=== PATIENT | male | born 1960 | race Caucasian/White ===

== ENCOUNTER 2018-04-15 04:00 | Emergency (ER) | payer MEDICARE ==
[2018-04-15] MEDS ORDERED: DUONEB 0.5-3 MG/3 ml Neb IH ONE ×2 (04:02→04:03)
[2018-04-15] MEDS ORDERED: Lasix 40 MG/4 ML IV ONE (04:02)
[2018-04-15] MEDS ORDERED: ROCEPHIN 1 Gm-D5w 50 ml Bag** 1 G/50 ML IVPB IV STA (04:02)
[2018-04-15] MEDS ORDERED: NITRO-BID 2% UD PACKETS TOP ONE (04:02)
[2018-04-15] MEDS ORDERED: Zithromax 500 MG/ 250 ML NaCl Premix 500 MG/250 ML IVPB IV STA (04:02)
[2018-04-15] MEDS ORDERED: NITRO-BID 2% UD PACKETS ONE (04:11)
[2018-04-15] MEDS ORDERED: ROCEPHIN 1 Gm-D5w 50 ml Bag** 1 G/50 ML IVPB IV ONE (04:11)
[2018-04-15] MEDS ORDERED: Lasix 40 MG/4 ML ONE (04:11)
[2018-04-15] MEDS ORDERED: Zithromax 500 MG/ 250 ML NaCl Premix 500 MG/250 ML IVPB IV ONE (04:11)
[2018-04-15 04:31] LABS: Granulocyte Absolute (ANC) 15.98 (1.4-6.9); Hematocrit 41.7 % (42-50); Hemoglobin 13.2 gm/dl (12.5-18.0); Mean Cell Volume 85.3 fl (78-100); Mean Corpuscular Hgb Concent. 31.7 g/dl (32-36); Mean Platelet Volume 9.3 fl (6-9.5); Platelet Count 324 K/mm3 (150-450); Red Blood Count 4.89 M/mm3 (4.1-5.6); Red Cell Distribution Width 16.1 % (11.5-14.0); White Blood Count 20.9 K/mm3 (4.0-10.5)
[2018-04-15 04:31] LABS: A-aADO2 160; ABG HEMOGLOBIN 13.3; ABG POTASSIUM 3.9 (3.5-5.1); ABG SITE RIGHT RADIAL; ALLEN TEST OK? YES; ARTERIAL BLD GAS O2 SATURATION 98.2 % (95-100); ARTERIAL BLOOD GAS BASE EXCESS -3.6 (-2.0-2.0); ARTERIAL BLOOD GAS FIO2 40 %; ARTERIAL BLOOD GAS PCO2 38 mmHg (35-45); ARTERIAL BLOOD GAS PO2 78 mmHg (75-100); ARTERIAL BLOOD GAS pH 7.36 (7.35-7.45); CARBOXYHEMOGLOBIN 5.3 % THgb (0.0-6.9); HCO3- 21.5 (22-28); HGB O2 SAT 92.1 g/dF (94-100); Methhemoglobin 0.9 % (1.4-1.5); paO2 pAO1 0.33
[2018-04-15 04:51] LABS: INR 1.24 (0.8-3.0); PROTIME 14.4 SECONDS (8.83-12.87)
--- NOTE | 2018-04-15 04:52 | ERPHSYRPT ---
- History of Present Illness Source: patient Exam Limitations: no limitations Patient Subjective Stated Complaint: SOB Triage Nursing Assessment: Patient brought into ED per EMS and transferred to bed with assist of 2. Patient complains of SOB. Patient A+O X 3. Patient's O2 87 % Patient refusing to wear O2 via mask at this time. Patient placed on O2 5 liters at this time. Patient's lungs noted to have crackles in bases and coarse throughout. Patient states he is able to breath better sitting on side of bed. O2 93 % on 5 liters of O2. Patient denies pain or discomfort. +1 edema noted to ble. Heart tones audible. Physician History: Pt is a 57 y/o male that was brought to the ED by EMS, with dyspnea. Pt has a h /o CAD with two stents. He is a moker (less than a PPD), and states, that was sick lately, and did not get his immunization this year. Pt is not using O2 at home. He states, that started being very SOB at home, and as he did not improve , he called EMS. Pt denies F/C/S. No chest pain or palpitations. He is not tolerating the O2 masks, but is willing to use NC. Timing/Duration: today Activities at Onset: none Severity of Dyspnea-Max: moderate Possible Cause: no prior episodes Modifying Factors: Improves With: deep breath, exertion, lying down, oxygen Associated Symptoms: cough, edema, wheezing, ankle swelling, heart racing Allergies/Adverse Reactions: codeine [Codeine] Allergy (Mild, Verified 04/15/18 04:27) diphenhydramine HCl [From Benadryl] Allergy (Mild, Verified 04/15/18 04:27) Home Medications: Aspirin [Aspir 81] 81 mg DAILY 02/15/12 [History] Atenolol 75 mg DAILY 02/15/12 [History] Gabapentin [Neurontin] 800 mg PO TID 02/15/12 [History] Hydrocodon/Ibupr 7.5mg/200mg [Vicoprofen 7.5mg/200mg Tablet] 7.5 mg Q4-6HPRN PRN 02/15/12 [History] Potassium Chloride [Klor-Con 8] 20 meq DAILY 02/15/12 [History] Amlodipine Besylate/Benazepril [Amlodipine-Benazepril 10-20 mg] 1 each DAILY 01/28 [History] Hx Influenza Vaccination/Date Given: Yes Hx Pneumococcal Vaccination/Date Given: Yes Immunizations Up to Date: Yes - Review of Systems Constitutional: Fatigue Eyes: No Symptoms Ears, Nose, & Throat: No Symptoms Respiratory: Cough, Dyspnea, Dyspnea on Exertion (MERAZ), Wheezing Cardiac: Edema, Orthopnea Abdominal/Gastrointestinal: No Abdominal Pain, No Nausea, No Vomiting, No Diarrhea Musculoskeletal: No Back Pain, No Neck Pain Neurological: No Dizziness, No Focal Weakness, No Sensory Changes - Past Medical History Pertinent Past Medical History: Yes Neurological History: Peripheral Neuropathy ENT History: No Pertinent History Cardiac History: Hypertension, Myocardial Infarction ([place]) Respiratory History: No Pertinent History Endocrine Medical History: No Pertinent History Musculoskeletal History: Arthritis, Fractures GI Medical History: No Pertinent History History: No Pertinent History Psycho-Social History: No Pertinent History Male Reproductive Disorders: No Pertinent History - Past Surgical History Past Surgical History: Yes Neuro Surgical History: No Pertinent History Cardiac: Cardiac Catheterization, Cardiac Stent Respiratory: No Pertinent History Gastrointestinal: No Pertinent History Genitourinary: No Pertinent History Musculoskeletal: Joint Replacement, Orthopedic Surgery Male Surgical History: No Pertinent History Other Surgical History: lt knee scoped, rt shoulder scoped, clavical replaced, plate in neck 4 and 5, rt knee, - Social History Smoking Status: Current every day smoker How long have you smoked: 25 years Exposure to second hand smoke: No Drug Use: none Patient Lives Alone: No Significant Family History: heart disease - Nursing Vital Signs Nursing Vital Signs: Initial Vital Signs Pulse Rate 95 H 04/15/18 04:00 Respiratory Rate 28 H 04/15/18 04:00 Blood Pressure 166/84 04/15/18 04:00 O2 Sat by Pulse Oximetry 89 L 04/15/18 04:00 Pain Scale Pain Intensity 0 - Physical Exam General Appearance: moderate distress Eye Exam: PERRL/EOMI Ears, Nose, Throat Exam: hearing decreased Neck Exam: JVD Respiratory Exam: crackles/rales (b/l diffuse) Cardiovascular/Chest Exam: normal heart sounds, JVD, tachycardia Abdominal/Gastrointestinal Exam: soft, No tenderness, No distention, No mass Extremity Exam: non-tender, normal range of motion, normal inspection, no calf tenderness, no pedal edema, pedal edema Neurologic Exam: alert, oriented x 3, cooperative, 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 t wave abnormalities V4-V6) Ordered Tests: Active Orders 24 hr Category Date Time Status Vp Informatics STAT Care 04/15/18 04:04 Active EKG-ER Only STAT Care 04/15/18 04:02 Active IV Insertion STAT Care 04/15/18 04:02 Active CHEST WITH CONTRAST [CT] Stat Exams 04/15/18 05:17 Ordered ARTERIAL BLOOD GASES Stat Lab 04/15/18 04:21 Completed BLOOD CULTURE Stat Lab 04/15/18 04:20 Received CBC W DIFF Stat Lab 04/15/18 04:15 Completed CMP Stat Lab 04/15/18 04:15 Completed D-DIMER QUANTITATION Stat Lab 04/15/18 04:15 Completed MAGNESIUM Stat Lab 04/15/18 04:15 Completed Manual Differential NC Stat Lab 04/15/18 04:15 Completed NT PRO BNP Stat Lab 04/15/18 04:15 Completed PROTIME WITH INR Stat Lab 04/15/18 04:15 Completed TROPONIN Q3H Lab 04/15/18 04:15 Received TROPONIN Q3H Lab 04/15/18 07:15 Ordered TROPONIN Q3H Lab 04/15/18 10:15 Ordered TROPONIN Q3H Lab 04/15/18 13:15 Ordered TROPONIN Q3H Lab 04/15/18 16:15 Ordered UA W/RFX UR CULTURE Stat Lab 04/15/18 05:09 Ordered Respiratory Nebulizer STAT RT 04/15/18 04:05 Completed Respiratory Therapy Assessment DAILY RT 04/15/18 04:42 Completed Medication Summary Discontinued Medications Generic Name Dose Route Start Last Admin Trade Name Freq PRN Reason Stop Dose Admin Albuterol/Ipratropium 3 ml 04/15/18 04:02 04/15/18 04:10 Duoneb 0.5-3 Mg/3 Ml Neb IH 04/15/18 04:03 3 ml STAT ONE Administration Albuterol/Ipratropium Confirm 04/15/18 04:03 Duoneb 0.5-3 Mg/3 Ml Neb Administered 04/15/18 04:04 Dose 3 ml IH .STK-MED ONE Furosemide 40 mg 04/15/18 04:02 03/02/19 04:18 Lasix 40 Mg/4 Ml IV 04/15/18 04:03 40 mg STAT ONE Administration Furosemide Confirm 04/15/18 04:11 Lasix 40 Mg/4 Ml Administered 04/15/18 04:12 Dose 40 mg .ROUTE .STK-MED ONE Ceftriaxone Sodium/Dextrose 1 g in 50 mls @ 100 mls/hr 04/15/18 04:02 05:18 Rocephin 1 Gm-D5w 50 Ml Bag IV 04/15/18 04:31 Infused STAT STA Infusion Azithromycin 500 mg in 250 mls @ 250 mls/hr 04/15/18 04:02 04/15/18 04:56 Zithromax 500 Mg/ 250 Ml Nacl Premix IV 04/15/18 05:01 250 ml/hr STAT STA 250 mls/hr Administration Azithromycin Confirm 04/15/18 04:11 Zithromax 500 Mg/ 250 Ml Nacl Premix Administered 04/15/18 04:12 Dose 500 mg in 250 mls @ ud IV .STK-MED ONE Ceftriaxone Sodium/Dextrose Confirm 04/15/18 04:11 Rocephin 1 Gm-D5w 50 Ml Bag Administered 04/15/18 04:12 Dose 1 g in 50 mls @ ud IV .STK-MED ONE Nitroglycerin 1 gm 04/15/18 04:02 04/15/18 04:18 Nitro-Bid 2% Ud Packets TOP 04/15/18 04:03 1 gm STAT ONE Administration Nitroglycerin Confirm 04/15/18 04:11 Nitro-Bid 2% Ud Packets Administered 04/15/18 04:12 Dose 1 gm .ROUTE .STK-MED ONE Lab/Rad Data: Laboratory Result Diagrams 04/15/18 04:15 04/15/18 04:15 Laboratory Results 04/15/18 04/15/18 04/15/18 Range/Units 04:21 04:20 04:15 WBC (4.0-10.5) K/mm3 RBC (4.1-5.6) M/mm3 Hgb (12.5-18.0) gm/dl Hct (42-50) % MCV (78-100) fl MCH (26-32) pg MCHC (32-36) g/dl RDW (11.5-14.0) % Plt Count (150-450) K/mm3 MPV (6-9.5) fl Absolute Granulocytes (1.4-6.9) PT (8.83-12.87) SECONDS INR (0.8-3.0) D-Dimer (215-500) ng/mL Puncture Site RIGHT RADIAL pCO2 38 (35-45) mmHg pO2 78 (75-100) mmHg Base Excess -3.6 L (-2.0-2.0) O2 Saturation 92.1 L (94-100) g/dF ABG pH 7.36 (7.35-7.45) ABG HCO3 21.5 L (22-28) ABG O2 Sat (Measured) 98.2 (95-100) % Hieu Test YES A-a Gradient 160 a/A Ratio 0.33 Hemoglobin 13.3 Carboxyhemoglobin 5.3 (0.0-6.9) % THgb Methemoglobin 0.9 L (1.4-1.5) % Temperature 37.0 C POC O2 Flow Rate 40 % Sodium (137-145) mmol/L Potassium 3.9 (3.5-5.1) mmol/L Chloride (98-107) mmol/L Carbon Dioxide (22-30) mmol/L Anion Gap (5-15) MEQ/L BUN (9-20) mg/dL Creatinine (0.66-1.25) mg/dL Estimated GFR ML/MIN Glucose (74-106) mg/dL Calcium (8.4-10.2) mg/dL Magnesium (1.6-2.3) mg/dL Total Bilirubin (0.2-1.3) mg/dL AST (17-59) U/L ALT (0-50) U/L Alkaline Phosphatase (38-126) U/L Troponin I 1.150 H* (0.000-0.034) ng/mL NT-Pro-B Natriuret Pep (0-900) pg/mL Serum Total Protein (6.3-8.2) g/dL Albumin (3.5-5.0) g/dL Influenza Type A Ag NEGATIVE (NEGATIVE) Influenza Type B Ag NEGATIVE (NEGATIVE) RSV (PCR) NEGATIVE (Negative) 04/15/18 04/15/18 04/15/18 Range/Units 04:15 04:15 04:15 WBC 20.9 H (4.0-10.5) K/mm3 RBC 4.89 (4.1-5.6) M/mm3 Hgb 13.2 (12.5-18.0) gm/dl Hct 41.7 L (42-50) % MCV 85.3 (78-100) fl MCH 27.0 (26-32) pg MCHC 31.7 L (32-36) g/dl RDW 16.1 H (11.5-14.0) % Plt Count 324 (150-450) K/mm3 MPV 9.3 (6-9.5) fl Absolute Granulocytes 15.98 H (1.4-6.9) PT 14.4 H (8.83-12.87) SECONDS INR 1.24 (0.8-3.0) D-Dimer 664 H* (215-500) ng/mL Puncture Site pCO2 (35-45) mmHg pO2 (75-100) mmHg Base Excess (-2.0-2.0) O2 Saturation (94-100) g/dF ABG pH (7.35-7.45) ABG HCO3 (22-28) ABG O2 Sat (Measured) (95-100) % Hieu Test A-a Gradient a/A Ratio Hemoglobin Carboxyhemoglobin (0.0-6.9) % THgb Methemoglobin (1.4-1.5) % Temperature C POC O2 Flow Rate % Sodium 146 H (137-145) mmol/L Potassium 4.2 (3.5-5.1) mmol/L Chloride 112 H (98-107) mmol/L Carbon Dioxide 22 (22-30) mmol/L Anion Gap 15.6 H (5-15) MEQ/L BUN 23 H (9-20) mg/dL Creatinine 1.30 H (0.66-1.25) mg/dL Estimated GFR > 60.0 ML/MIN Glucose 142 H (74-106) mg/dL Calcium 9.2 (8.4-10.2) mg/dL Magnesium 2.3 (1.6-2.3) mg/dL Total Bilirubin 0.60 (0.2-1.3) mg/dL AST 34 (17-59) U/L ALT 32 (0-50) U/L Alkaline Phosphatase 118 (38-126) U/L Troponin I (0.000-0.034) ng/mL NT-Pro-B Natriuret Pep 7400 H (0-900) pg/mL Serum Total Protein 7.5 (6.3-8.2) g/dL Albumin 4.3 (3.5-5.0) g/dL Influenza Type A Ag (NEGATIVE) Influenza Type B Ag (NEGATIVE) RSV (PCR) (Negative) - Progress Progress: improved Air Movement: fair Progress Note: Pt presented to the ED with dyspnea. He got a duo neb treatment, Azithromycin and Ceftriaxone IV, Lasix 40mg IV. ABG showed hypoxia, but normal PH and no CO2 retention. Pt's troponin was elevated at 1.15, and pro BNP 7400. [facility] was contacted and pt was auto accepted. Dr Land is ED accepted pt. Pt will be placed on Heparin gtt. CT for PE study was done, and it will be loaded to the cloud. 04/15/18 04:54 04/15/18 05:56 Blood Culture(s) Obtained: No Antibiotics given: Yes - Departure Time of Disposition: 05:58 Departure Disposition: Transfer Clinical Impression: NSTEMI (non-ST elevated myocardial infarction) Condition: Stable Critical Care Time: Yes Critical Care Time(excluding separately billable procedures): 30-74 minutes Referrals: ROJELIO MARTINEZ [Primary Care Provider] - Additional Instructions: Pt will be transfered to [facility] ER. Dr Land is accepted.
[2018-04-15 05:08] LABS: INFLUENZA A NEGATIVE (NEGATIVE); INFLUENZA B NEGATIVE (NEGATIVE); RESPIRATORY SYNCTIAL VIRUS NEGATIVE (Negative)
[2018-04-15 05:10] LABS: ALBUMIN 4.3 g/dL (3.5-5.0); ALKALINE PHOSPHATASE 118 U/L (38-126); ANION GAP 15.6 MEQ/L (5-15); BLOOD UREA NITROGEN 23 mg/dL (9-20); CHLORIDE 112 mmol/L (98-107); Calcium 9.2 mg/dL (8.4-10.2); Carbon Dioxide 22 mmol/L (22-30); Glucose 142 mg/dL (74-106); MAGNESIUM 2.3 mg/dL (1.6-2.3); NT PRO BNP 7400 pg/mL (0-900); Potassium 4.2 mmol/L (3.5-5.1); SGOT/AST 34 U/L (17-59); SGPT/ALT 32 U/L (0-50); SODIUM 146 mmol/L (137-145); Total Protein 7.5 g/dL (6.3-8.2)
[2018-04-15 05:55] LABS: Lymphocytes 11 % (24-44); Monocyte 7 % (0.0-12.0); Neutrophils 82 % (36.-66.); Total Cells Counted 100
[2018-04-15 05:56] LABS: Platelet Estimate NORMAL (NORMAL)
[2018-04-15] MEDS ORDERED: Heparin 25,000 units/D5W 250ML PREMIX 25,000 UNITS/250 ML BAG IV SCH (06:00)
[2018-04-15] MEDS ORDERED: Heparin 25,000 units/D5W 250ML PREMIX 25,000 UNITS/250 ML BAG IV ONE (06:03)
[2018-04-15 06:08] VITALS: BP 136/76; PULSE 86; O2SAT 93
[2018-04-15 06:16] LABS: Appearance CLEAR (CLEAR); Bilirubin NEGATIVE (NEGATIVE); Blood NEGATIVE Ery/ul (0-5); Glucose NEGATIVE (NEGATIVE); Ketones NEGATIVE (NEGATIVE); Leukocyte Esterase NEGATIVE (NEGATIVE); Mucus SLIGHT /HPF (NEGATIVE); Nitrite NEGATIVE (NEGATIVE); Protein,Urine Dip NEGATIVE (Negative); Specific Gravity 1.014 (1.005-1.025); Urobilinogen NEGATIVE mg/dL (0-1)
--- NOTE | 2018-04-15 09:23 | XRAY ---
Indication: Short of breath. Elevated d-dimer. Comparison: February 18, 2014. Portable chest now demonstrates cardiomegaly, mild vascular prominence, mild interstitial edema, and small bibasilar effusions favoring cardiac decompensation versus fluid overload. Superimposed pneumonia not completely excluded. Bony thorax intact again with mild degenerative changes and old left clavicle fracture.
== END 2018-04-15 06:35 | disposition short-term general hospital (02) ==
LOC: ED 04:00
DX: I21.4 Non-ST elevation (NSTEMI) myocardial infarction (principal); R09.02 Hypoxemia; R06.00 Dyspnea, unspecified; I10 Essential (primary) hypertension; G62.9 Polyneuropathy, unspecified; M19.90 Unspecified osteoarthritis, unspecified site; I25.10 Atherosclerotic heart disease of native coronary artery without angina pectoris; Z79.899 Other long term (current) drug therapy; R06.02 Shortness of breath; Z99.81 Dependence on supplemental oxygen; Z72.9 Problem related to lifestyle, unspecified
CPT/HCPCS: 36000; 36415; 36600; 71045; 80053; 81001; 82375; 82803; 83735; 83880; 84484; 85025; 85379; 85610; 87040; 87631; 93005; 93041; 94640; 96365; 96367; 96374; 99285; 99291; J0456; J0696; J1644; J1940; A9270-GY

== ENCOUNTER 2019-11-09 14:27 | Emergency (ER) | payer MEDICARE ==
--- NOTE | 2019-11-09 14:29 | ERPHSYRPT ---
- History of Present Illness Time Seen by Provider: 11/09/19 14:29 Source: patient Exam Limitations: no limitations Physician History: This is a 59-year-old obese white male who is on gabapentin for years for neck pain and on Percocet chronically for hip and back pain. Patient sees Dr. Villagomez for chronic pain issues. Patient has been on 7.5 Percocet chronically. Patient complained of increased right hip pain despite no trauma and a week ago, Dr. Villagomez increased his Percocet to 10/325. 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 Patient has been taking the Percocet 10, last dose being 2:00 this morning, and noticed his skin being dry and rash present generally. He is not short of breath. He is here to obtain pain control. Has taken Vicoprofen and hydrocodone in the past without any problems. Timing/Duration: day(s) (A few) Severity: moderate Modifying Factors: Improves With: movement Associated Symptoms: rash Allergies/Adverse Reactions: codeine [Codeine] Allergy (Mild, Verified 11/09/19 14:53) diphenhydramine HCl [From Benadryl] Allergy (Mild, Verified 11/09/19 14:53) Home Medications: Aspirin [Aspir 81] 81 mg DAILY 02/15/12 [History] Gabapentin [Neurontin] 800 mg PO TID 02/15/12 [History] Potassium Chloride [Klor-Con 8] 20 meq DAILY 02/15/12 [History] Amlodipine Besylate/Benazepril [Amlodipine-Benazepril 10-20 mg] 1 each DAILY 03/28/14 [History] Atorvastatin Calcium 10 mg PO DAILY 11/09/19 [History] Clopidogrel Bisulfate [Clopidogrel] 75 mg PO DAILY 11/09/19 [History] Cyclobenzaprine HCl 10 mg [Cyclobenzaprine 10 MG] 10 mg PO TID 11/09/19 [History] Furosemide 40 mg PO BID 11/09/19 [History] Loratadine 10 mg [Claritin 10 mg] 10 mg PO DAILY 11/09/19 [History] Meloxicam [Mobic] 15 mg PO DAILY 11/09/19 [History] Pramipexole Di-HCl [Pramipexole Dihydrochloride] 0.5 mg PO HS 11/09/19 [History] carvediloL [Carvedilol] 6.25 mg PO BID 11/09/19 [History] Hx Influenza Vaccination/Date Given: Yes Hx Pneumococcal Vaccination/Date Given: Yes Travel Risk - International Travel Have you traveled outside of the country in past 3 weeks: No - Coronavirus Screening Are you exhibiting any of the following symptoms?: No Close contact with a COVID-19 positive Pt in past 14-21 Days: No - Review of Systems Constitutional: No Symptoms Eyes: No Symptoms Ears, Nose, & Throat: No Symptoms Respiratory: No Symptoms Cardiac: No Symptoms Abdominal/Gastrointestinal: No Symptoms Genitourinary Symptoms: No Symptoms Musculoskeletal: Joint Pain (Hip right side) Skin: Rash (Generalized mild), Dryness (Generalized) Neurological: No Symptoms Psychological: No Symptoms Endocrine: No Symptoms Hematologic/Lymphatic: No Symptoms Immunological/Allergic: No Symptoms All Other Systems: Reviewed and Negative - Past Medical History Pertinent Past Medical History: Yes Neurological History: Peripheral Neuropathy ENT History: No Pertinent History Cardiac History: Hypertension, Myocardial Infarction ([place]) Respiratory History: No Pertinent History Endocrine Medical History: No Pertinent History Musculoskeletal History: Arthritis, Fractures GI Medical History: No Pertinent History History: No Pertinent History Psycho-Social History: No Pertinent History Male Reproductive Disorders: No Pertinent History - Past Surgical History Past Surgical History: Yes Neuro Surgical History: No Pertinent History Cardiac: Cardiac Catheterization, Cardiac Stent Respiratory: No Pertinent History Gastrointestinal: No Pertinent History Genitourinary: No Pertinent History Musculoskeletal: Joint Replacement, Orthopedic Surgery Male Surgical History: No Pertinent History Other Surgical History: lt knee scoped, rt shoulder scoped, clavical replaced, plate in neck 4 and 5, rt knee, - Social History Smoking Status: Current every day smoker How long have you smoked: 25 years Exposure to second hand smoke: No Drug Use: none Patient Lives Alone: No Significant Family History: heart disease - Nursing Vital Signs Nursing Vital Signs: Initial Vital Signs Temperature 98.4 F 11/09/19 14:39 Pulse Rate 74 11/09/19 14:39 Blood Pressure 123/72 11/09/19 14:39 O2 Sat by Pulse Oximetry 95 11/09/19 14:39 Pain Scale Pain Intensity 8 - Physical Exam General Appearance: no apparent distress, alert, anxiety Eye Exam: PERRL/EOMI, eyes nml inspection Ears, Nose, Throat Exam: normal ENT inspection, moist mucous membranes Neck Exam: normal inspection, non-tender, supple, full range of motion Respiratory Exam: normal breath sounds, airway intact, No chest tenderness, No respiratory distress Rectal Exam: not done Back Exam: normal inspection, normal range of motion, CVA tenderness, vertebral tenderness Extremity Exam: normal inspection, normal range of motion, pelvis stable, tenderness Neurologic Exam: alert (Right hip), oriented x 3, cooperative, 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, normal mood/affect, nml cerebellar function, nml station & gait, sensation nml Skin Exam: normal color, warm, dry Lymphatic Exam: No adenopathy SpO2 Interpretation: normal O2 Delivery: Room Air - Course Nursing assessment & vital signs reviewed: Yes Ordered Tests: Medication Summary Discontinued Medications Generic Name Dose Route Start Last Admin Trade Name Freq PRN Reason Stop Dose Admin Hydromorphone HCl 1 mg 11/09/19 15:23 Hydromorphone 1 Mg/Ml Injection IM 11/09/19 15:24 STAT ONE Methylprednisolone Sodium Succinate 125 mg 11/09/19 15:22 Solu-Medrol 125 Mg IM 11/09/19 15:23 STAT ONE Ondansetron HCl 4 mg 11/09/19 15:22 Zofran Odt 4 Mg PO 11/09/19 15:23 STAT ONE - Progress Progress: improved, pain not gone completely Counseled pt/family regarding: diagnosis, need for follow-up - Departure Departure Disposition: Home Clinical Impression: Right hip pain, Dry skin dermatitis Condition: Stable Critical Care Time: No Referrals: ROJELIO MARTINEZ [Primary Care Provider] - Additional Instructions: Stop your Percocet 10 medication. Keep your skin moist twice a day with unscented skin lotion. Take your new medications as prescribed. Call your primary care physician and your pain specialist today to arrange for an appointment. Prescriptions: Hydrocodone/APAP 5/325 [Shannon 5/325 mg] 1 each PO Q12H PRN PRN #6 tablet MDD 2 PRN Reason: Pain Carisoprodol 350 mg [Soma 350 mg] 350 mg PO Q12H PRN PRN #6 tablet MDD 2 PRN Reason: Muscle Spasms Prednisone 10 mg [Deltasone 10 mg] 10 mg PO TID #12 tablet
[2019-11-09 14:53] VITALS: PULSE 74
[2019-11-09] MEDS ORDERED: ZOFRAN ODT 4 MG PO ONE (15:22)
[2019-11-09] MEDS ORDERED: solu-MEDROL 125 MG IM ONE (15:22)
[2019-11-09] MEDS ORDERED: Hydromorphone 1 mg/ml Injection IM ONE (15:23)
[2019-11-09] MEDS ORDERED: ZOFRAN ODT 4 MG ONE (15:45)
[2019-11-09] MEDS ORDERED: solu-MEDROL 125 MG ONE (15:46)
[2019-11-09] MEDS ORDERED: Hydromorphone 1 mg/ml Injection ONE (15:46)
[2019-11-09 16:01] VITALS: BP 149/75; O2SAT 96
== END 2019-11-09 16:16 | disposition home or self-care (01) ==
LOC: ED 14:27
DX: M25.551 Pain in right hip (principal); L85.3 Xerosis cutis; Z79.899 Other long term (current) drug therapy; M54.2 Cervicalgia; Z79.891 Long term (current) use of opiate analgesic; M54.9 Dorsalgia, unspecified; I10 Essential (primary) hypertension; I25.2 Old myocardial infarction
CPT/HCPCS: 96372; 99284; J1170; J2930; Q0162